=== PATIENT | male | born 1975 | race Caucasian/White ===

== ENCOUNTER 2019-04-13 20:52 | Emergency (ER) | payer BC ==
[2019-04-13 21:21] VITALS: BP 153/96; PULSE 78; TEMP 98.2; BMI 24.4
--- NOTE | 2019-04-14 01:37 | PDOC ---
Documentation entered by Ginger Anne SCRIBE, acting as scribe for Sandhya Lopez MD. Sandhya Lpoez MD: This documentation has been prepared by the romanibeOmid Lincy, SCRIBE, under my direction and personally reviewed by me in its entirety. I confirm that the documentation accurately reflects all work, treatment, procedures, and medical decision making performed by me. History of Present Illness - General Chief Complaint: Pain, Acute Stated Complaint: L KNEE PAIN Time Seen by Provider: 04/13/19 20:54 History Source: Patient Exam Limitations: No Limitations - History of Present Illness Initial Comments: 04/13/19 21:33 The patient is a 43-year-old male with no significant past medical history who presents to the emergency department with L. knee pain s/p a fall. The patient reports around 2:00 pm, he was walking when he tripped over a hidden metal pole , landing on his left knee and hands. Denies LOC, head injury. The patient reports he sustained some scraped to his hands and left knee. The patient reports he went back to work, where he was seated in a meeting for about 2 hours. The patient reports when he got up, he felt frozen. The patient reports the pain has intensified to the left knee, which is aggravated with movement. The patient reports he has to hold onto his knee while ambulating secondary to the pain. Denies pain radiating down. Denies taking any medication Denies prior injury to the knee. Allergies: penicillin Surgical history: Pulmonary stenosis (age 3) and Spinal fusion (L4-5, 2016). PCP: Dr. Bruce Cota ([facility]) Past History - Past Medical History Allergies/Adverse Reactions: Allergies Allergy/AdvReac Type Severity Reaction Status Date / Time Penicillins Allergy Unknown Verified 07/25/12 17:31 Home Medications: Ambulatory Orders Clonazepam 0.5 mg PO PRN 04/13/19 Fluoxetine HCl [Prozac] 40 mg PO DAILY 04/13/19 Oxycodone HCl/Acetaminophen [Percocet 5-325 mg Tablet] 1 tab PO Q6H PRN #16 tablet MDD 4 tabs 04/13/19 - Psycho Social/Smoking Cessation Hx Smoking Status: No Smoking History: Never smoked Number of Cigarettes Smoked Daily: 0 Review of Systems - Review of Systems Able to Perform ROS?: Yes Comments:: 04/13/19 21:37 CONSTITUTIONAL: Pt denies Fever, Chills, weakness. HEENT: denies vision changes, sore throat RESPIRATORY: Denies cough, sob, hemoptysis CARDIAC: denies chest pain, palpitations, lightheadedness, leg swelling ABD/GI: denies abd pain, nausea, vomiting, blood per rectum, melena, diarrhea : denies dysuria, frequency, discharge MSK: +left knee pain. denies back pain, other joint pain/swelling SKIN: denies bruising, erythema, rash NEUROLOGICAL: denies headache, numbness, focal weakness, tingling, ataxia, weakness HEMATOLOGICAL: denies anemia, easy bruising, easy bleeding *Physical Exam - Vital Signs Last Vital Signs Temp Pulse Resp BP Pulse Ox 98.2 F 78 14 153/96 100 04/13/19 20:56 04/13/19 20:56 04/13/19 20:56 04/13/19 20:56 04/13/19 20:56 - Physical Exam 04/13/19 21:37 GENERAL: The patient is awake, alert, and fully oriented, in no acute distress. EXTREMITIES: +Left knee: moderate edema with tenderness of the lateral aspect of the patella, no ecchymosis or deformities evident. No ligamentous instability present. Rest of the extremities: Normal range of motion, no edema. No clubbing or cyanosis. No cords, erythema, or tenderness. SKIN: +2x3cm bleeding abrasion midline, just below the patella. Warm, Dry, normal turgor, no rashes or lesions noted. ED Treatment Course - RADIOLOGY Radiology Studies Ordered: Category Date Time Status KNEE 3 POS-LEFT [RAD] Stat Radiology 04/13/19 21:21 Completed ED Progress Note - Progress Note Progress Note: As noted above, this 43-year-old man without significant past medical history presents with left knee injury sustained earlier today when he tripped over horizontal pipe positioned over a curb. Impact of the subsequent fall was on patient's left knee and bilateral hands. No significant injury sustained by hands however patient has had substantial pain and swelling in the left knee. Patient denies head/neck injury and there was no loss of consciousness. Exam as noted with point tenderness in the lateral aspect of the patella. 3 position left knee x-ray performed. Interpretation by Dr. Dominguez of the radiology staffnondisplaced horizontal fracture of the inferior pole of the patella Result discussed with the patient Abrasion was cleansed using sterile saline and bacitracin applied to the wound. 2 x 2 gauze dressing attached. Nate wrap dressing applied to the left knee followed by a knee immobilizer. The patient does not have an orthopedic surgeon. Doctors Cm and Skip are on service call. Referral information for the practice will be given to the patient. He should call the office tomorrow for follow-up within the next 48 hours. Patient fitted for crutches and crutch walking (nonweightbearing on left) instruction given. The patient should elevate and ice the knee as much as possible in the next 2 days until he is seen by orthopedics . The patient called his to drive him home and he was given Percocet 5/325, 1 tablet now for pain relief. Small (#12) prescription for Percocet 5/325 to be taken every 6 hours as needed for severe pain up to 4 tablets a day sent to his pharmacy. Patient has had Percocet in the past (after his back surgery in 2016) and had no side effects from the medication other than mild constipation. He should reserve narcotic medication for when he has severe pain and he can avoid any activity requiring his full attention. If he has milder pain or requires full attention, he can take Motrin/Aleve/Tylenol 0 Discharge - Discharge Information Problems reviewed: Yes Clinical Impression/Diagnosis: Patellar fracture Qualifiers: Encounter type: initial encounter Fracture type: closed Fracture morphology: transverse Fracture alignment: nondisplaced Laterality: left Qualified Code(s): S82.035A - Nondisplaced transverse fracture of left patella, initial encounter for closed fracture Condition: Stable Disposition: HOME - Additional Discharge Information Prescriptions: Oxycodone HCl/Acetaminophen [Percocet 5-325 mg Tablet] 1 tab PO Q6H PRN #16 tablet MDD 4 tabs PRN Reason: Severe Pain - Follow up/Referral Referrals: Jean Carlos Cota [Primary Care Provider] - Fran Pabon MD [Staff Physician] - Call tomorrow - Patient Discharge Instructions Patient Printed Discharge Instructions: Patella Fracture Additional Instructions: Elevate/ice to patella as much as possible over the next 48 hours Nate wrap/knee immobilizer when up and around Crutches as needed for ambulation until seen by orthopedist Tylenol/Motrin/Aleve as needed for mild to moderate pain Percocet 5/325 as needed for severe pain (drink plenty of water/increase fiber in diet) Call Dr. Pabon/Dr. Valdivia (orthopedics) office in AM to arrange follow-up within the next 48 hours - Post Discharge Activity
== END 2019-04-13 22:39 | disposition home or self-care (01) ==
LOC: SUPCPDRO 20:52 → FER 20:52
PROC: 2W3RX1Z Immobilization of Left Lower Leg using Splint (ICD-10-PCS; principal; 2019-04-13)
DX: S82.035A Nondisplaced transverse fracture of left patella, initial encounter for closed fracture (principal); W18.09XA Striking against other object with subsequent fall, initial encounter; Y93.89 Activity, other specified; Y92.89 Other specified places as the place of occurrence of the external cause; Z88.0 Allergy status to penicillin
CPT/HCPCS: 73562-TC-LT-FY; 99284-25